=== PATIENT | female | born 1980 | race Caucasian/White ===

== ENCOUNTER 2017-12-24 15:10 | Emergency (ER) | payer OTHER ==
[~2017-12-24] VITALS: Ht 167.6 cm; Wt 64.0 kg
[2017-12-24 15:13] VITALS: TEMP 36.8; Ht 167.6 cm; Wt 64.0 kg
[2017-12-24 15:22] VITALS: O2SAT 96
--- NOTE | 2017-12-24 15:57 | EMERGENCY ROOM VISIT NOTE ---
History Report prepared by Ariela: Katy Palma Under the Supervision of: Dr. Ezra Mcmullen D.O. First contact with patient: 15:53 Chief Complaint: ALCOHOL OVERDOSE Stated Complaint: ETOH Nursing Triage Summary: Patient presents to triage via BLS from her room at the [facility]. Patient recently moved to the [facility] from outside of [place]. 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 Patient has a history of alcoholism and binge drinking since 2014. Patient tearfully states "I have been drinking wine and beer in my room since about noon today. I talked with my dad and we decided that I should come here to the ER. My dad is on his way here to be with me." Patient admits to having a history of anxiety, depression and HTN. Patient used to take medications for her BP but they were discontinued in 2009. Patient reports that she was admitted to a rehab facility back in 2014 - voluntary. Patient states "I just want to be better. I don't want this to happen to me again. I have been good for a while...haven't been drinking." Patient reports that she is prescribed medications for her anxiety and depression but that she has not been taking them. Last time she took the medications was 2 days ago. History of Present Illness The patient is a 37 year old female who presents to the Emergency Room with complaints of alcohol intoxication beginning last night. The patient reports she is having a "rough day." She states she started drinking late last night and she notes she drinks a bottle of wine a day but not very often. She notes she was last in rehab for alcoholism [place]. She denies having any blackouts or seizures from drinking. She denies any nausea, vomiting, or having any thoughts of hurting herself. The patient states she is moving up here and is here for work. She note she called her dad precinct police captain and they both agreed it was best for her to come into the ED. Per care management, the patient reports she has been drinking alcohol all morning. Pt admits to having a history of HTN, anxiety, and depression. Source of History: patient, other (care management team) Onset: last night precinct police captain Position: other (global) Modifying Factors (Worsening): drinking Associated Symptoms: No nausea, No vomiting Note: Denies having any blackouts or seizures from drinking. Denies having any thoughts of hurting herself. Review of Systems See HPI for pertinent positives & negatives. A total of 10 systems reviewed and were otherwise negative. Past Medical & Surgical Medical Problems: (1) Anxiety (2) Depression (3) Hypertension Family History Patient reports no known family medical history. Social History Smoking Status: Never Smoker Alcohol Use: occasionally (a bottle of wine occasionally ) Occupation Status: employed (specialist field engineer) Current/Historical Medications Scheduled [Antidepression Med], Unknown Dose PO DIRECTED Allergies Coded Allergies: No Known Allergies (Unverified , 12/24/17) Physical Exam Vital Signs Date Time Temp Pulse Resp B/P (MAP) Pulse Ox O2 Delivery O2 Flow Rate FiO2 12/24/17 21:17 75 16 137/67 98 12/24/17 19:43 72 18 137/72 96 Room Air 12/24/17 16:50 89 18 146/102 96 Room Air 12/24/17 15:22 96 Room Air 12/24/17 15:13 36.8 90 18 168/123 96 Room Air Physical Exam GENERAL: Patient was awake and alert, slow to respond to questions but appears appropriate, does not appear anxious EYES: Pupils were wide but reactive to light bilaterally. EARS, NOSE, MOUTH AND THROAT: The nose is without any evidence of any deformity. Mucous membranes are moist tongue is midline NECK: The neck is nontender and supple. RESPIRATORY: Normal respiratory effort is noted there is no evidence of wheezing rhonchi or rales CARDIOVASCULAR: Regular rate and rhythm noted there no murmurs rubs or gallops normal S1 normal S2 GASTROINTESTINAL: The abdomen is soft. Bowel sounds are present in all quadrants. Abdomen is nontender MUSCULOSKELETAL/EXTREMITIES: There is no evidence of gross deformity full range of motion is noted in the hips and shoulders SKIN: There is no obvious evidence of any rash. There are no petechiae, pallor or cyanosis noted. NEUROLOGIC: Patient is awake alert and oriented x3 strength is symmetric patellar reflexes are 2+ bilaterally PSYCH: Patient appears slightly intoxicated. Affect is flat. Currently denying any suicidal or homicidal ideation. Medical Decision & Procedures Laboratory Results 12/24/17 16:39 Red Blood Count 4.07, Mean Corpuscular Volume 99.5, Mean Corpuscular Hemoglobin 35.9, Mean Corpuscular Hemoglobin Concent 36.0, Mean Platelet Volume 8.6, Neutrophils (%) (Auto) 60.2, Lymphocytes (%) (Auto) 25.8, Monocytes (%) (Auto) 13.2, Eosinophils (%) (Auto) 0.0, Basophils (%) (Auto) 0.8, Neutrophils # (Auto ) 2.14, Lymphocytes # (Auto) 0.92, Monocytes # (Auto) 0.47, Eosinophils # (Auto ) 0.00, Basophils # (Auto) 0.03 12/24/17 16:39 Test 12/24/17 16:39 12/24/17 17:47 White Blood Count 3.56 K/uL (4.8-10.8) Red Blood Count 4.07 M/uL (4.2-5.4) Hemoglobin 14.6 g/dL (12.0-16.0) Hematocrit 40.5 % (37-47) Mean Corpuscular Volume 99.5 fL (80-100) Mean Corpuscular Hemoglobin 35.9 pg (25-34) Mean Corpuscular Hemoglobin Concent 36.0 g/dl (32-36) Platelet Count 82 K/uL (130-400) Mean Platelet Volume 8.6 fL (7.4-10.4) Neutrophils (%) (Auto) 60.2 % Lymphocytes (%) (Auto) 25.8 % Monocytes (%) (Auto) 13.2 % Eosinophils (%) (Auto) 0.0 % Basophils (%) (Auto) 0.8 % Neutrophils # (Auto) 2.14 K/uL (1.4-6.5) Lymphocytes # (Auto) 0.92 K/uL (1.2-3.4) Monocytes # (Auto) 0.47 K/uL (0.11-0.59) Eosinophils # (Auto) 0.00 K/uL (0-0.5) Basophils # (Auto) 0.03 K/uL (0-0.2) RDW Standard Deviation 48.1 fL (36.4-46.3) RDW Coefficient of Variation 13.2 % (11.5-14.5) Immature Granulocyte % (Auto) 0.0 % Immature Granulocyte # (Auto) 0.00 K/uL (0.00-0.02) Platelet Estimate DECREASED Prothrombin Time 10.7 SECONDS (9.0-12.0) Prothromb Time International Ratio 1.0 (0.9-1.1) Activated Partial Thromboplast Time 25.8 SECONDS (21.0-31.0) Partial Thromboplastin Ratio 1.0 Anion Gap 11.0 mmol/L (3-11) Est Creatinine Clear Calc Drug Dose 93.6 ml/min Estimated GFR () 114.3 Estimated GFR (Non- 98.6 BUN/Creatinine Ratio 14.0 (10-20) Calcium Level 8.3 mg/dl (8.5-10.1) Magnesium Level 2.0 mg/dl (1.8-2.4) Total Bilirubin 0.3 mg/dl (0.2-1) Direct Bilirubin 0.1 mg/dl (0-0.2) Aspartate Amino Transf (AST/SGOT) 176 U/L (15-37) Alanine Aminotransferase (ALT/SGPT) 60 U/L (12-78) Alkaline Phosphatase 81 U/L (45-117) Total Creatine Kinase 129 U/L (26-192) Total Protein 7.8 gm/dl (6.4-8.2) Albumin 3.9 gm/dl (3.4-5.0) Lipase 362 U/L (73-393) Human Chorionic Gonadotropin, Qual NEG (NEG) Salicylates Level < 1.7 mg/dl (2.8-20) Acetaminophen Level < 2 ug/ml (10-30) Ethyl Alcohol mg/dL 436.0 mg/dl (0-3) Urine Color YELLOW Urine Appearance CLEAR (CLEAR) Urine pH 5.5 (4.5-7.5) Urine Specific [place] 1.017 (1.000-1.030) Urine Protein 1+ (NEG) Urine Glucose (UA) NEG (NEG) Urine Ketones NEG (NEG) Urine Occult Blood NEG (NEG) Urine Nitrite NEG (NEG) Urine Bilirubin NEG (NEG) Urine Urobilinogen NEG (NEG) Urine Leukocyte Esterase NEG (NEG) Urine WBC (Auto) 1-5 /hpf (0-5) Urine RBC (Auto) 0-4 /hpf (0-4) Urine Hyaline Casts (Auto) 0 /lpf (0-5) Urine Epithelial Cells (Auto) >30 /lpf (0-5) Urine Bacteria (Auto) NEG (NEG) Urine Opiates Screen NEG (NEG) Urine Methadone, Qualitative NEG (NEG) Urine Barbiturates NEG (NEG) Urine Phencyclidine (PCP) Level NEG (NEG) Ur Amphetamine/Methamphetamine NEG (NEG) MDMA (Ecstasy) Screen NEG (NEG) Urine Benzodiazepines Screen NEG (NEG) Urine Cocaine Metabolite NEG (NEG) Urine Marijuana (THC) NEG (NEG) Laboratory results per my review. ED Course 1600: The patient was evaluated in room A7. A complete history and physical examination were performed. 210: Upon reevaluation, the patient is better. I discussed the results and treatment plan with her. She verbalized agreement of the treatment plan. Her father is coming to pick her up. She was discharged home. Medical Decision Prior records/ancillary studies reviewed. Triage Nursing notes reviewed. The patient's history was concerning for altered mental status and a possible alcohol overdose. Differential diagnosis: Etiologies such as alcohol intoxication, toxicologic, infection, hypoglycemia, electrolyte abnormalities, cardiac sources, intracerebral event, neurologic, as well as others were entertained. The patient is a 37-year-old female who presented to the emergency department for evaluation of alcohol intoxication. The patient has a history of chronic alcohol use. She has been through rehab in the past. There is no history of trauma. The patient was clinically intoxicated on initial evaluation. She was reevaluated multiple times. She was medically cleared in the emergency department. She was evaluated by the mental health correctional case manager. At this time she has no suicidal homicidal ideation. She does not request to be placed in rehab. Her father presented to the emergency department to be with her. He was able to take responsibility for the patient and she was discharged and his care. She was encouraged to avoid any further alcoholic beverages and not operate any heavy machinery or drive a vehicle for next 24 hours. Otherwise she was encouraged to return the emergency department immediately if symptoms change worsen or the need arises. Medication Reconcilliation Current Medication List: was personally reviewed by me Blood Pressure Screening Patient's blood pressure: Elevated blood pressure Blood pressure disposition: Referred to PCP Impression Primary Impression: Alcohol use with intoxication Scribe Attestation The scribe's documentation has been prepared under my direction and personally reviewed by me in its entirety. I confirm that the note above accurately reflects all work, treatment, procedures, and medical decision making performed by me. Departure Information Dispostion Home / Self-Care Forms HOME CARE DOCUMENTATION FORM, IMPORTANT VISIT INFORMATION Patient Instructions My [facility] Additional Instructions Drink plenty of clear liquids. Avoid any further alcoholic beverages. Do not operate any heavy machinery including driving a vehicle for the next 24 hours. Return to the emergency department immediately if symptoms change worsen or the need arises.
[2017-12-24 17:07] LABS: HEMATOCRIT 40.5 % (37-47); HEMOGLOBIN 14.6 g/dL (12.0-16.0); MEAN CELL VOLUME 99.5 fL (80-100); MEAN CORPUSCULAR HEMOGLOBIN 35.9 pg (25-34); RED CELL DISTRIBUTION WIDTH CV 13.2 % (11.5-14.5); RED CELL DISTRIBUTION WIDTH SD 48.1 fL (36.4-46.3); WHITE BLOOD COUNT 3.56 K/uL (4.8-10.8)
[2017-12-24 17:09] LABS: PTT PATIENT 25.8 SECONDS (21.0-31.0)
[2017-12-24 17:25] LABS: ALBUMIN 3.9 gm/dl (3.4-5.0); CALCIUM 8.3 mg/dl (8.5-10.1); CREATININE 0.77 mg/dl (0.60-1.20); POTASSIUM 3.6 mmol/L (3.5-5.1)
[2017-12-24 17:28] LABS: TOTAL PROTEIN 7.8 gm/dl (6.4-8.2)
[2017-12-24 17:29] LABS: MEAN PLATELET VOLUME 8.6 fL (7.4-10.4); PLATELET COUNT 82 K/uL (130-400)
[2017-12-24 17:30] LABS: BASO % 0.8 %; BASO ABS # 0.03 K/uL (0-0.2); LYMPH % 25.8 %; LYMPH ABS # 0.92 K/uL (1.2-3.4); MONO % 13.2 %; MONO ABS # 0.47 K/uL (0.11-0.59); NEUT % 60.2 %; NEUT ABS # 2.14 K/uL (1.4-6.5)
[2017-12-24] MEDS ORDERED: [UNRECOGNIZED DRUG - OTHER] PO (17:53)
[2017-12-24 21:17] VITALS: BP 137/67; PULSE 75; O2SAT 98
== END 2017-12-24 21:18 | disposition home or self-care (01) ==
LOC: C.EDA 15:12
DX: F10.929 Alcohol use, unspecified with intoxication, unspecified (principal); I10 Essential (primary) hypertension